=== PATIENT | male | born 1965 | race Caucasian/White ===

== ENCOUNTER 2023-01-11 09:42 | Emergency (ER) | payer OTHER, SELFPAY ==
[2023-01-11 09:44] VITALS: BP 136/94; PULSE 64; RESP 14; TEMP 36.2; O2SAT 95; BMI 31.4
--- NOTE | 2023-01-11 10:05 | VDLE_ITS ---
Reason For Study: LEG PAIN RIGHT LEFT CFV is compressible, spontaneous, phasic, GSV is normal. competent and demonstrates normal CFV is compressible, spontaneous, phasic, augmentation. competent, and demonstrates normal Procedure augmentation. This is a venous duplex using B-mode, color FV is compressible, spontaneous, phasic, flow and spectral Doppler. competent and demonstrates normal Exam performed in department. augmentation. The exam was diagnostic. POP V is compressible, spontaneous, phasic, A preliminary report was called and/or faxed competent and demonstrates normal to ED RN. augmentation. T/P Trunk is compressible. PTV is compressible. LT PerV is compressible. VL/Venous Duplex US, Unilateral Interpretation Summary There is no evidence of left lower extremity deep vein thrombosis. Left great s aphenous vein appears patent and compressible segmentally. Normal flow patterns right common femoral vein Ordering Physician: Carolin Cunha Referring Physician: Good Duran Performed By: Bassam Rodriguez RVT
--- NOTE | 2023-01-11 10:05 | EX.ED.DYSGE1 ---
HPI History of Present Illness Chief Complaint: General Illness Informant: patient Narrative Narrative: Patient is a 57-year-old male presenting with left calf pain. Patient is a history of a DVT about 10 years ago. He states he was treated with Coumadin at that time. He does not recall why he had a DVT. He does not follow regularly with weights since Saturday (2 days ago) he had burning pain in his left calf. It is worse with sitting and better when standing or when laying still in bed. Patient's been taking 800 mg ibuprofen with no relief of his symptoms however he states it does take the edge off. Did not take any medication prior to arrival. Denies any associated numbness or tingling. Denies any associated chest pain, shortness of breath or difficulty breathing. Denies any injury. No other complaints at this time. [facility] Medical History (Updated 01/11/23 @ 11:[address] Carolin Cunha DO) Lower extremity pain Allergy/AdvReac Type Severity Reaction Status Date / Time No Known Allergies Allergy Verified 01/11/23 09:44 Social History Smoking Status: Unknown if ever smoked ROS ROS ED Constitutional Constitutional ED: Denies chills or fever(s) Cardiovascular Cardiovascular: Denies chest pain or palpitations Respiratory/Chest Respiratory/Chest: Denies cough or dyspnea Gastrointestinal Gastrointestinal: Denies nausea or vomiting Musculoskeletal Musculoskeletal: Reports other Details: Left calf pain ; Denies arthralgias Integumentary Denies rash Neurologic Neurologic: Denies paresthesias or weakness Psychiatric Psychiatric: Denies anxiety EXAM Physical Exam Const Vital Signs: 01/11/23 09:44 Temperature 97.1 F L Temperature Source Temporal Pulse Rate 64 Respiratory Rate 14 Blood Pressure 136/94 H Blood Pressure Mean 108 Pulse Ox 95 Oxygen Delivery Method Room Air Positive well nourished and well developed General Appearance ED: well developed and NAD HEENT Reports moist mucous membranes Neck supple and no JVD Chest Wall inspection of chest normal and palpation of chest normal Resp normal respiratory effort and clear to auscultation bilaterally Cardio regular rate, regular rhythm and no murmurs Extremity normal to inspection Extremity Narrative: No significant edema or palpable cords of the left lower extremity. Patient does have tenderness to palpation of the left calf. No pedal edema appreciated. He has 2+ bilateral DP pulses. Normal Cardoso test Neuro oriented x3 Sensorium / Orientation: alert Motor Exam: Negative for general weakness or strength abnormal Psych mental status grossly normal Skin no rashes or lesions noted and no wounds MDM MDM MDM Narrative Medical decision making narrative: Patient evaluated for left calf pain. Differential includes DVT, compartment syndrome and muscle strain. Strain is less likely given he does not report any injury. His compartments are soft I do not think is compartment syndrome. Will obtain of venous duplex ultrasound to rule out or and DVT. Patient has good distal pulses and good capillary refill. At this time no concern for vascular compromise. Venous duplex wet read is negative for any acute process. Patient is informed of this. Patient counseled on the differential including muscular strain and possibly prodrome of shingles. Patient will continue to alternate ibuprofen and Tylenol at home. Is given outpatient orthopedic follow-up. Counseled that if he develops a rash likely this was shingles. If his swelling gets worse or pain gets worse he might need to come back to the ER to be reevaluated as it is possible that he could still develop blood clot and might need a repeat ultrasound. He verbalizes agreement understand this plan. Mathew wrap is applied. Counseled on RICE therapy. Discharge Plan Triage Chief Complaint: General Illness ED Provider: Carolin Cunha Dx/Rx/DC Orders Clinical Impression: Pain of left calf Instructions: ED Muscle Strain, Extremity, ED RICE Primary Care Provider: Rizwana Escamilla Referrals: Pardeep Jessica DO [Med Staff - Active Staff] - 3-5 Days if not improving Good Duran MD [Non-Staff] - Activity Restrictions/Additional Instructions: Wear compression stocking or Mathew wrap on the leg as this heals. Practice RICE therapy with rest, ice, compression and elevation. Alternate ibuprofen and Tylenol as we discussed. Your venous duplex today was negative for DVT however the exact cause of your pain is not clear. If your symptoms worsen or progress please return to the emergency room. Disposition Disposition: Home, Self Care
== END 2023-01-11 11:20 | disposition home or self-care (01) ==
PROVIDERS: Emergency Provider Emergency Medicine; PCP Nurse Practitioner Family; Visit Provider Emergency Medicine
DX: M79.662 Pain in left lower leg (principal)
CPT/HCPCS: 93971; 99282